=== PATIENT | female | born 1975 | race Caucasian/White ===

== ENCOUNTER 2018-04-17 12:01 | Emergency (ER) | payer OTHER ==
[~2018-04-17] VITALS: Ht 165.1 cm; Wt 90.7 kg
[2018-04-17 12:43] LABS: ABSOLUTE BASOPHIL COUNT 0 /CUMM (0.0-0.2); ABSOLUTE EOSINOPHIL COUNT 0.1 /CUMM (0.0-0.7); ABSOLUTE GRANULOCYTE CT 3.1 /CUMM (1.4-6.5); ABSOLUTE LYMPH COUNT 1.6 /CUMM (1.2-3.4); ABSOLUTE MONOCYTE COUNT 0.4 /CUMM (0.10-0.60); BASOPHIL % 0.5 % (0.0-2.0); EOSINOPHIL % 1.2 % (0-5); GRANULOCYTE % 60.5 % (42.2-75.2); HEMATOCRIT 38.9 % (37-47); MEAN CORPUSCULAR HGB 28.5 PG (27.0-31.0); MEAN CORPUSCULAR VOLUME 83.7 FL (81.0-99.0); MEAN PLATELET VOLUME 9.4 FL (7.4-10.4); PLATELET COUNT 249 /CUMM (130-400); RBC DISTRIBUTION WIDTH 13.7 % (11.5-14.5); RED BLOOD CELL CT 4.65 /CUMM (4.20-5.40); WHITE BLOOD CELL COUNT 5.1 /CUMM (4.8-10.8)
--- NOTE | 2018-04-17 13:28 | ED GENERAL ADULT ---
History of Present Illness General Chief Complaint: Chest Pain Stated Complaint: BIBA FOR CHEST PAIN Source: patient Exam Limitations: no limitations Vital Signs & Intake/Output Vital Signs & Intake/Output Vital Signs Date Time Temp Pulse Resp B/P B/P Pulse O2 O2 Flow FiO2 Mean Ox Delivery Rate 04/17 1647 98.6 73 20 110/67 97 Room Air 04/17 1512 86 18 103/62 97 Room Air 04/17 1511 Room Air 04/17 1418 98.9 80 20 135/82 98 Room Air 04/17 1252 97.3 77 18 132/79 97 Allergies Coded Allergies: Penicillins (PT UNKNOWN 04/17/18) erythromycin base (GI UPSET 04/17/18) Reconcile Medications Escitalopram Oxalate 10 MG TABLET 1 TAB PO DAILY MENTAL HEALTH (Reported) Famotidine/Ca Carb/Mag Hydrox (Pepcid Complete Tablet Chew) 10 MG-800 MG-165 MG TAB.CHEW 1 TAB PO DAILY GI (Reported) Omeprazole 40 MG CAPSULE. 1 CAP PO Q48 GI (Reported) Triage Note: PT BIBA FROM CAR FOR RAPID ONSET OF R SIDED CHEST PAIN THAT WAS UNDER R BREAST THAT LASTED APPROX 15 MINS WITH SOME SOB AT THE TIME. NO SOB OR CHEST PAIN ON ARRIVAL. MEDICATED WITH 324 MG OF ASPIRIN EN ROUTE. REPORTS SOME LIGHTHEADEDNESS NOW. Triage Nurses Notes Reviewed? yes : No Patient currently breastfeeds: No HPI: Patient is a 43-year-old female with no significant past medical history who is brought in today by EMS with chest pain. She reports that she had a similar episode in September 2017 at which time she had a negative ED workup and was told stress was the likely culprit. She was not referred to cardiology and has received no further workup since then. Today, she was driving to work and had relatively acute onset of right-sided chest discomfort with dyspnea and nausea. She called 911 and was brought to the ED. By the time EMS arrived her pain had resolved, having lasted only approximately 15-20 minutes. She is currently symptom free. Triage ECG was unremarkable. She does not take oral contraceptives, has had no recent lung distance travel, and is a nonsmoker. Past History Travel History Traveled to [place] past 21 day No Medical History Any Pertinent Medical History? see below for history Neurological: NONE EENT: NONE Cardiovascular: NONE Respiratory: NONE Gastrointestinal: GERD, HIATAL HERNIA Hepatic: NONE Renal: NONE Musculoskeletal: NONE Psychiatric: anxiety, depression Endocrine: NONE Blood Disorders: NONE Cancer(s): NONE AUTHORIZATION NURSE/Reproductive: NONE Surgical History Surgical History: none Psychosocial History What is your primary language Lao Tobacco Use: Never used ETOH Use: occasional use Illicit Drug Use: denies illicit drug use Family History Hx Contributory? No Review of Systems Review of Systems Constitutional: Reports: see HPI. EENTM: Reports: no symptoms. Respiratory: Reports: short of breath. Cardiovascular: Reports: see HPI, chest pain. GI: Reports: see HPI, nausea. Genitourinary: Reports: no symptoms. Musculoskeletal: Reports: no symptoms. Skin: Reports: no symptoms. Neurological/Psychological: Reports: no symptoms. Hematologic/Endocrine: Reports: no symptoms. Immunologic/Allergic: Reports: no symptoms. All Other Systems: Reviewed and Negative Physical Exam Physical Exam General Appearance: well developed/nourished, no apparent distress, alert, awake , comfortable Comments: HEENT: Inspection of the head reveals a normocephalic cranium with no signs of trauma. Ophtho: Extraocular muscles are intact and pupils are equal and reactive to light bilaterally with no afferent pupillary defect. The sclera are noninjected , and there is no obvious discharge. Neck: The trachea is midline, there is no obvious asymmetry or mass over the thyroid, and there is no midline cervical spine tenderness Respiratory: The lungs are clear and equal to auscultation bilaterally without wheezes, rales, or rhonchi. The patient exhibits no signs of labored breathing. Cardiac: Regular rhythm and non-tachycardic without appreciable murmurs on auscultation. No obvious JVD. GI: Examination of the abdomen reveals no significant focal tenderness in any of the four quadrants. There is negative Osborn's sign, negative McBurney's point tenderness, negative [place] sign, negative Joiner-Hooper sign, and no signs of peritonitis whatsoever on percussion or deep palpation. The skin is intact with no sign of trauma or infection. : Deferred Neuro: The patient is oriented to person, place, time, and situation, with no obvious focal motor deficits. There were no sensory deficits, and the patient exhibit purposeful movement of all 4 extremities. Cranial nerves II through XII are intact, and gait is normal. Behavioral: Calm and cooperative Dermatologic: Dermatologic examination reveals no diffuse rashes or exanthems, no petechiae, no ecchymoses, and no other signs of erythema or infection. Core Measures ACS in differential dx? Yes CVA/TIA Diagnosis: No Sepsis Present: No Sepsis Focused Exam Completed? No Progress Differential Diagnoses I considered the following diagnoses in my evaluation of the patient: Plan of Care: Orders Procedure Date/time Status EKG 04/17 1714 Active TROPONIN LEVEL 04/17 1530 Complete EKG 04/17 1530 Active URINE 04/17 121 Complete URINE DRUG SCREEN FOR ER ONLY 04/17 121 Complete URINALYSIS 04/17 121 Complete TROPONIN LEVEL 04/17 121 Complete COMPREHENSIVE METABOLIC PANEL 04/17 1212 Complete CBC WITHOUT DIFFERENTIAL 04/17 1212 Complete EKG 04/17 1202 Active Laboratory Tests 04/17/18 1530: Troponin I 0.03 04/17/18 1244: Urine Opiates Screen < 100, Methadone Screen < 40, Barbiturate Screen < 60, Ur Phencyclidine Scrn < 6.00, Amphetamines Screen < 100, U Benzodiazepines Scrn < 85, Urine Cocaine Screen < 50, Urine Cannabis Screen < 5.00, Urine Color YEL, Urine Clarity CLEAR, Urine pH 6.5, Ur Specific [place] 1.010, Urine Protein NEG, Urine Ketones TRACE H, Urine Nitrite NEG, Urine Bilirubin NEG, Urine Urobilinogen 0.2, Ur Leukocyte Esterase NEG, Ur Microscopic SEDIMENT EXAMINED, Urine RBC RARE, Ur Epithelial Cells FEW, Urine Hemoglobin TRACE-INTACT, Urine Glucose NEG, Urine Test NEGATIVE 04/17/18 1224: Anion Gap 12, Estimated GFR > 60, BUN/Creatinine Ratio 14.4, Glucose 103 H, Calcium 9.3, Total Bilirubin 0.3, AST 25, ALT 35, Alkaline Phosphatase 59, Troponin I < 0.01, Total Protein 7.2, Albumin 4.2, Globulin 3.0, Albumin/ Globulin Ratio 1.4, CBC w Diff NO MAN DIFF REQ, RBC 4.65, MCV 83.7, MCH 28.5, MCHC 34.0, RDW 13.7, MPV 9.4, Gran % 60.5, Lymphocytes % 30.6, Monocytes % 7.2, Eosinophils % 1.2, Basophils % 0.5, Absolute Granulocytes 3.1, Absolute Lymphocytes 1.6, Absolute Monocytes 0.4, Absolute Eosinophils 0.1, Absolute Basophils 0 CXR Impression: no acute abnormality, no infiltrates, normal size heart, normal mediastinum Initial ED EKG: ecg PERFORMED AT 12:12 pm READ AT 12:22 pm BY ME, NORMAL SINUS RHYTHM AT RATE OF 87 BPM. [place] normal, [place]/QRS/QTc intervals normal, T wave inversion in III, no other T-wave or ST segment abnormalities. No STEMI, no ischemia, no priors for comparison. Repeat EKG: unchanged Comments: Patient presented today for atypical chest pain. Initial troponin was less than 0.01, chest x-ray clear, and ECG negative. Given the short amount of time between the episode and her arrival in the ED for an troponin #1, we decided to follow the HEART pathway and obtain a repeat troponin and repeat ECG at T +3 hours. The repeat ECG had a flipped T-wave in V2, but this was repeated after lead reversal was suspected and this change normalized. No ischemic changes from the first ECG. A peak troponin however was 0.03. While still negative, this was somewhat concerning. I discussed her case w/ Dr. Najera from cardiology. He felt that it was reasonable to discharge the patient home and asked that she follow-up with him in the office tomorrow. Medical screening examination was otherwise negative, patient stable at time of discharge. Departure Departure Time of Disposition: 1804 Disposition: HOME OR SELF CARE Condition: Stable Clinical Impression Primary Impression: Chest pain Qualifiers: Chest pain type: unspecified Qualified Code: R07.9 - Chest pain, unspecified Referrals: Malorie WALDRON,Marito (PCP/Family) Additional Instructions: Please follow-up with Dr. Mcdermott in his office tomorrow without fail. Departure Forms: Customer Survey General Discharge Information Critical Care Note Critical Care Note Critical Care Time: non-applicable
--- NOTE | 2018-04-17 13:42 | RADIOLOGY REPORT ---
EXAMINATION: CHEST 2 VIEWS CLINICAL INFORMATION: Chest pain. COMPARISON: None. TECHNIQUE: PA and lateral views of the chest were obtained. FINDINGS: The cardiac silhouette is not enlarged. The mediastinal and hilar contours are unremarkable. There are neither pleural effusions nor pneumothoraces. There are no consolidations. The osseous structures are unremarkable. IMPRESSION: No evidence for acute disease.
[2018-04-17] MEDS ORDERED: ESCITALOPRAM OX10 MG PO (14:41)
[2018-04-17] MEDS ORDERED: OMEPRAZOLE40 M1 PO (14:41)
[2018-04-17] MEDS ORDERED: PEPCID COMPLET1 EACH PO (14:42)
[2018-04-17 18:15] VITALS: BP 1230/71
== END 2018-04-17 18:13 ==
LOC: ERH 12:01
PROVIDERS: Physician Assistant
DX: R07.89 Other chest pain (principal)
CPT/HCPCS: 71046; 80307; 81001; 81025; 93005; 93010